=== PATIENT | male | born 1990 | race Caucasian/White ===

== ENCOUNTER 2019-02-21 13:09 | Emergency (ER) | payer BC ==
--- NOTE | 2019-02-21 13:40 | PDOC ---
Rapid Medical Evaluation Chief Complaint: Pain, Acute Time Seen by Provider: 02/21/19 13:36 Medical Evaluation: 02/21/19 13:38 Pt c/o: rt lower abd pain x 4 days worse at night, no other assoc complaints Pt on brief exam: no rlq tenderness, no cva tenderness, vss Pt ordered for: labs and urine Pt to proceed to the ED Discharge Disposition - Diagnosis Abdominal pain - Discharge Dispostion Disposition: HOME - Referrals Referrals: [facility] [place] [facility] [place] [Provider Group] Carlos A Medina MD [Staff Physician] - Guy Galindo MD [Staff Physician] - Urszula Ma MD [Staff Physician] - Rene Mahmood MD [Staff Physician] - Kory Pierce MD [Staff Physician] - - Patient Instructions Printed Discharge Instructions: DI for Abdominal Pain-Adult Additional Instructions: You were seen in the emergency department for the evaluation of your abdominal pain. Your laboratory work was normal, showing no signs of infection. Your urine does not have blood which would be consistent with kidney stones. In addition, there was no infection in your urine. Please follow up with one of the primary medical doctors provided as referrals to you. It is important that you follow up with them within the next 1 week after discharge for establishment of care. Please return to the emergency department if you have worsening pain or new concerning symptoms such as fevers, pain with urination, worsening abdominal pain, and uncontrollable nausea and vomiting. Thank you. - Post Discharge Activity Work/School Note: Back to Work
[2019-02-21 14:20] LABS: BASO % 0.6 % (0-2.0); EOS % 1.5 % (0-4.5); HEMATOCRIT 46.1 % (35.4-49); HEMOGLOBIN 16.4 GM/dL (11.7-16.9); MCH 31.3 pg (25.7-33.7); MCHC 35.5 g/dl (32.0-35.9); MEAN CELL VOLUME 88.1 fl (80-96); MEAN PLT VOLUME 7.9 fl (7.5-11.1); MONO % 5.7 % (3.8-10.2); NEUT % 72.2 % (42.8-82.8); PLATELET COUNT 270 K/MM3 (134-434); RBC 5.24 M/mm3 (4.00-5.60); WHITE BLOOD COUNT 9.1 K/mm3 (4.0-10.0)
[2019-02-21 14:21] LABS: URINE APPEARANCE CLEAR; URINE BILIRUBIN NEGATIVE (NEGATIVE); URINE COLOR YELLOW; URINE GLUCOSE (UA) NEGATIVE (NEGATIVE); URINE KETONE NEGATIVE (NEGATIVE); URINE LEUK ESTERASE NEGATIVE (NEGATIVE); URINE NITRITE NEGATIVE (NEGATIVE); URINE PROTEIN NEGATIVE (NEGATIVE); URINE UROBILINOGEN 0.2 mg/dL (0.2-1.0)
[2019-02-21] MEDS ORDERED: ACETAMINOPHEN 325 MG TABLET (FP) PO ONE (14:32)
[2019-02-21 14:38] LABS: ALBUMIN 4.4 g/dl (3.4-5.0); BILIRUBIN,TOTAL 0.5 mg/dL (0.2-1); BLOOD UREA NITROGEN 17.9 mg/dL (7-18); CALCIUM 9.4 mg/dL (8.5-10.1); CREATININE 1.2 mg/dL (0.55-1.3); POTASSIUM 4.3 mmol/L (3.5-5.1); TOT PROT 7.8 g/dl (6.4-8.2)
--- NOTE | 2019-02-21 14:52 | PDOC ---
History of Present Illness - General Chief Complaint: Pain, Acute Stated Complaint: ABD PAIN Time Seen by Provider: 02/21/19 13:36 History Source: Patient Exam Limitations: No Limitations - History of Present Illness Initial Comments: 02/21/19 14:57 28 yo M with no past medical history presents to the emergency department with RLQ pain with onset this past Sunday (6 days). 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 The patient states the pain would be worse at night, come and go, and described as a discomfort. The patient denies fever, chills, dysuria, hematuria, increased urinary frequency, hx of STDs, hx of abdominal surgeries, hx of penile discharge, testicular pain/swelling, trauma, hematochezia, and constipation. Per the patient, he had diarrhea episodes from Sunday - Sunday with spontaneous resolution. The patient states his pain is nearly abated while in the emergency department without intervention given. Shx: None Allergies: NKDA Past History - Past Medical History Allergies/Adverse Reactions: Allergies Allergy/AdvReac Type Severity Reaction Status Date / Time No Known Allergies Allergy Verified 02/21/19 13:39 - Suicide/Smoking/Psychosocial Hx Smoking History: Never smoked Hx Alcohol Use: No Drug/Substance Use Hx: No Review of Systems - Review of Systems Able to Perform ROS?: Yes Is the patient limited Sami proficient: No Constitutional: No: Chills, Diaphoresis, Fever, Weakness HEENTM: No: Ear Pain, Nose Pain, Throat Pain, Mouth Pain Respiratory: No: Cough, Shortness of Breath, Hemoptysis Cardiac (ROS): No: Chest Pain, Lightheadedness, Palpitations, Syncope, Chest Tightness ABD/GI: No: Constipated, Diarrhea, Nausea, Rectal Bleeding, Vomiting, Tarry Stools : No: Burning, Dysuria, Discharge, Frequency, Flank Pain, Hematuria, Incontinence, Urgency, Testicular Mass, Testicular Swelling, Testicular Pain Musculoskeletal: No: Back Pain, Joint Pain, Neck Pain Integumentary: No: Bruising, Erythema, Rash Neurological: No: Headache, Numbness, Tingling, Tremors Psychiatric: No: Change in Appetite Endocrine: No: Unexplained Weight Gain Hematologic/Lymphatic: No: Anemia *Physical Exam - Vital Signs Last Vital Signs Temp Pulse Resp BP Pulse Ox 98.4 F 83 16 108/72 99 02/21/19 13:36 02/21/19 13:36 02/21/19 13:36 02/21/19 13:36 02/21/19 13:36 - Physical Exam General Appearance: Yes: Nourished, Appropriately Dressed. No: Apparent Distress, Intoxicated HEENT: positive: EOMI, YURY, Normal Voice, Symmetrical, Pharynx Normal, Hearing Grossly Normal. negative: Pale Conjunctivae, Scleral Icterus (R), Scleral Icterus (L), Muffled/Hoarse voice, Pharyngeal Erythema, Tonsillar Exudate, Tonsillar Erythema, Nasal Congestion, Rhinorrhea, Sinus Tenderness, Excessive drooling Neck: positive: Trachea midline, Supple. negative: Tender, Lymphadenopathy (R) , Lymphadenopathy (L), Tender lateral, Tender midline Respiratory/Chest: positive: Lungs Clear, Normal Breath Sounds. negative: Chest Tender, Respiratory Distress, Accessory Muscle Use, Crackles, Rales, Rhonchi, Stridor, Wheezing Cardiovascular: positive: Regular Rhythm, Regular Rate, S1, S2. negative: Systolic Murmur Gastrointestinal/Abdominal: positive: Normal Bowel Sounds, Flat, Soft. negative : Tender, Distended, Guarding, Rebound Male Genitalia: positive: normal genitalia. negative: testicular tenderness, testicular mass, epididymus tender, inguinal hernia Lymphatic: negative: Adenopathy Musculoskeletal: positive: Normal Inspection. negative: CVA Tenderness, Vertebral Tenderness Extremity: positive: Normal Capillary Refill, Normal Inspection, Normal Range of Motion. negative: Tender Integumentary: positive: Normal Color, Dry, Warm Neurologic: positive: customer relations advisor II-XII NML intact, Fully Oriented, Alert, Normal Mood/ Affect, Normal Response, Motor Strength 5/5 ED Treatment Course - LABORATORY CBC & Chemistry Diagram: 02/21/19 13:50 02/21/19 13:50 - ADDITIONAL ORDERS Additional order review: Laboratory Results 02/21/19 02/21/19 02/21/19 13:50 13:50 13:50 Sodium 136 Potassium 4.3 Chloride 102 Carbon Dioxide 28 Anion Gap 6 L BUN 17.9 Creatinine 1.2 Est GFR (CKD-EPI)AfAm 93.48 Est GFR (CKD-EPI)NonAf 80.66 Random Glucose 107 H Calcium 9.4 Total Bilirubin 0.5 AST 19 ALT 29 Alkaline Phosphatase 71 Total Protein 7.8 Albumin 4.4 Lipase 86 Urine Color Yellow Urine Appearance Clear Urine pH 7.0 Ur Specific [place] 1.010 Urine Protein Negative Urine Glucose (UA) Negative Urine Ketones Negative Urine Blood Negative Urine Nitrite Negative Urine Bilirubin Negative Urine Urobilinogen 0.2 Ur Leukocyte Esterase Negative 02/21/19 13:50 RBC 5.24 MCV 88.1 MCHC 35.5 RDW 12.0 MPV 7.9 Neutrophils % 72.2 Lymphocytes % 20.0 Monocytes % 5.7 Eosinophils % 1.5 Basophils % 0.6 Medical Decision Making - Medical Decision Making 02/21/19 16:07 28 yo M with no past medical history presents to the emergency department with RLQ pain with onset this past Sunday (6 days). 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 Initial vitals: Initial Vital Signs Temp Pulse Resp BP Pulse Ox 98.4 F 83 16 108/72 99 02/21/19 13:36 02/21/19 13:36 02/21/19 13:36 02/21/19 13:36 02/21/19 13:36 Work up: ddx: appendicitis vs nephrolithiasis vs UTI vs inguinal hernia. physical exam shows no testicular tenderness or swelling. no inguinal hernia appreciated. no tenderness to palpation in the RLQ. Suspicion for appendicitis low. Will check cbc, cmp, and UA for infection. Laboratory Tests 02/21/19 02/21/19 02/21/19 13:50 13:50 13:50 WBC 9.1 RBC 5.24 Hgb 16.4 Hct 46.1 MCV 88.1 MCH 31.3 MCHC 35.5 RDW 12.0 Plt Count 270 MPV 7.9 Absolute Neuts (auto) 6.5 Neutrophils % 72.2 Lymphocytes % 20.0 Monocytes % 5.7 Eosinophils % 1.5 Basophils % 0.6 Nucleated RBC % 0 Sodium 136 Potassium 4.3 Chloride 102 Carbon Dioxide 28 Anion Gap 6 L BUN 17.9 Creatinine 1.2 Est GFR (CKD-EPI)AfAm 93.48 Est GFR (CKD-EPI)NonAf 80.66 Random Glucose 107 H Calcium 9.4 Total Bilirubin 0.5 AST 19 ALT 29 Alkaline Phosphatase 71 Total Protein 7.8 Albumin 4.4 Lipase 86 Urine Color Urine Appearance Urine pH Ur Specific [place] Urine Protein Urine Glucose (UA) Urine Ketones Urine Blood Urine Nitrite Urine Bilirubin Urine Urobilinogen Ur Leukocyte Esterase 02/21/19 13:50 WBC RBC Hgb Hct MCV MCH MCHC RDW Plt Count MPV Absolute Neuts (auto) Neutrophils % Lymphocytes % Monocytes % Eosinophils % Basophils % Nucleated RBC % Sodium Potassium Chloride Carbon Dioxide Anion Gap BUN Creatinine Est GFR (CKD-EPI)AfAm Est GFR (CKD-EPI)NonAf Random Glucose Calcium Total Bilirubin AST ALT Alkaline Phosphatase Total Protein Albumin Lipase Urine Color Yellow Urine Appearance Clear Urine pH 7.0 Ur Specific [place] 1.010 Urine Protein Negative Urine Glucose (UA) Negative Urine Ketones Negative Urine Blood Negative Urine Nitrite Negative Urine Bilirubin Negative Urine Urobilinogen 0.2 Ur Leukocyte Esterase Negative labs and ua negative for acute process patient on re-evaluation continues to not have abdominal pain. Will discharge the patient and have them follow up with PMD outpatient. patient understands the importance of this and will follow up within 1 week patient was stable at discharge and able to ambulate on their own volition. Dispo: Discharge 02/21/19 16:09 *DC/Admit/Observation/Transfer Diagnosis at time of Disposition: Abdominal pain - Discharge Dispostion Disposition: HOME Decision to Admit order: No - Referrals Referrals: [facility] [place] [facility] [place] [Provider Group] Urszula Ma MD [Staff Physician] - Kory Pierce MD [Staff Physician] - Rene Mahmood MD [Staff Physician] - Guy Galindo MD [Staff Physician] - Carlos A Medina MD [Staff Physician] - - Patient Instructions Printed Discharge Instructions: DI for Abdominal Pain-Adult Additional Instructions: You were seen in the emergency department for the evaluation of your abdominal pain. Your laboratory work was normal, showing no signs of infection. Your urine does not have blood which would be consistent with kidney stones. In addition, there was no infection in your urine. Please follow up with one of the primary medical doctors provided as referrals to you. It is important that you follow up with them within the next 1 week after discharge for establishment of care. Please return to the emergency department if you have worsening pain or new concerning symptoms such as fevers, pain with urination, worsening abdominal pain, and uncontrollable nausea and vomiting. Thank you. - Post Discharge Activity Forms/Work/School Notes: Back to Work
--- NOTE | 2019-02-21 14:57 | PDOC ---
Documentation entered by Daphnie Humphries SCRIBE, acting as scribe for Damian Carrasco MD. Damian Carrasco MD: This documentation has been prepared by the pilaribeYandel Natalie, SCRIBE, under my direction and personally reviewed by me in its entirety. I confirm that the documentation accurately reflects all work, treatment, procedures, and medical decision making performed by me. Attending Attestation - Resident Resident Name: Anthony Brown - ED Attending Attestation I have performed the following: I have examined & evaluated the patient, The case was reviewed & discussed with the resident, I agree w/resident's findings & plan, Exceptions are as noted - HPI HPI: 02/21/19 14:57 28 years old with no significant past medical history presents to the emergency department with one-week history of intermittent right lower quadrant discomfort comes and goes currently asymptomatic no fever no chills no nausea no vomiting no abdominal pain at this time ROS: A complete review of 10 out of 10 review of systems is taken and is negative apart from what is previously mentioned below and in the HPI. - Physicial Exam PE: 02/21/19 14:57 Vitals: Triage Vital signs reviewed General Appearance: no acute distress, well nourished well developed, Head: Atraumatic, Cardiac: Regular rate and rhythym, no murmurs, no rubs, no gallops, Lungs: Clear to auscultation bilateral, good air movement bilaterally, Abdomen: Soft, non distended, normal bowel sounds, non tender to palpation Extremities: Full range of motion to all extremities, no cyanosis, clubbing, or edema Skin: Warm and dry, no rashes or lesions, no rash, no petechiae Psych: normal mood, normal affect - Medical Decision Making 02/21/19 15:01 \ Well-appearing no apparent distress presents emergency department with now resolved abdominal discomfort it is been intermittent for the last few days with no associated fever chills nausea vomiting. Patient's laboratory analysis and urinalysis is completely unremarkable. 3 abdominal exams and and performed in the emergency department with no pain. Patient understands he will return to the emergency department for any returning persistent pain any pain associated with fever as early appendicitis is still in the differential Findings, need for follow-up and strict return instructions discussed with patient.
[2019-02-21] MEDS ORDERED: ACETAMINOPHEN 325 MG TABLET (FP) ONE (15:33)
[2019-02-21 15:43] VITALS: BP 115/71; PULSE 62; TEMP 98
== END 2019-02-21 15:43 | disposition home or self-care (01) ==
LOC: JER 13:09
DX: R10.9 Unspecified abdominal pain (principal)
CPT/HCPCS: 36415; 80053; 81003; 83690; 85025; 87086; 99281-25

== ENCOUNTER 2021-06-09 22:35 | Inpatient (IN) | payer BC ==
[2021-06-09] MEDS ORDERED: SODIUM CHLORIDE 1,000 ML IV STA (22:53)
[2021-06-09 23:37] LABS: HEMATOCRIT 41.4 % (35.4-49); HEMOGLOBIN 14.3 GM/dL (11.7-16.9); MCH 30.2 pg (25.7-33.7); MCHC 34.5 g/dl (32.0-35.9); MEAN CELL VOLUME 87.6 fl (80-96); MEAN PLT VOLUME 7.9 fl (7.5-11.1); PLATELET COUNT 164 10^3/uL (134-434); RBC 4.72 M/mm3 (4.00-5.60); RDW 12.2 % (11.9-15.9); WHITE BLOOD COUNT 3.9 K/mm3 (4.0-10.0)
[2021-06-09] MEDS ORDERED: DEXAMETHASONE SOD PHOSPHATE 10 MG/1 ML VIAL IVPUSH ONE (23:39)
[2021-06-09] MEDS ORDERED: ACETAMINOPHEN 1000 MG/100 ML BAG IVPB ONE (23:45)
[2021-06-09 23:57] LABS: CHLORIDE 108 mmol/L (98-107); SODIUM 139 mmol/L (136-145)
[2021-06-10 00:01] LABS: ALBUMIN 3.5 g/dl (3.4-5.0); ANION GAP 8 MMOL/L (8-16); BLOOD UREA NITROGEN 11.6 mg/dL (7-18); CO2 22 mmol/L (21-32); GLUCOSE,RANDOM 102 mg/dL (74-106)
[2021-06-10 00:03] LABS: CREATININE 1.3 mg/dL (0.55-1.3); SGOT/AST 29 U/L (15-37); SGPT/ALT 25 U/L (13-61)
[2021-06-10 00:05] LABS: BILIRUBIN,TOTAL 0.4 mg/dL (0.2-1); TOT PROT 7.2 g/dl (6.4-8.2)
[2021-06-10 00:06] LABS: ALK PHOS 45 U/L (45-117)
[2021-06-10] MEDS ORDERED: ACETAMINOPHEN INJECTION 100 ML IVPB ONE (00:08)
[2021-06-10] MEDS ORDERED: DEXAMETHASONE SOD PHOSPHATE 10 MG/1 ML VIAL ONE (00:08)
[2021-06-10] MEDS ORDERED: VANCOMYCIN HCL 1,500 MG in DEXTROSE 5%-WATER - 500 ML IVPB ONE (03:33)
[2021-06-10] MEDS ORDERED: PIPERACILLIN/TAZOB 4.5 GM 4.5 GM in DEXTROSE 5%-WATER 100 ML IVPB ONE (03:33)
[2021-06-10] MEDS ORDERED: PIPERACILLIN/TAZOB 4.5 GM 4.5 GM/100 ML BAG IVPB ONE (04:34)
[2021-06-10] MEDS ORDERED: VANCOMYCIN PREMIX 1.5 GM 1,500 MG/300 ML BAG IVPB ONE (06:00)
[2021-06-10] MEDS ORDERED: DEXAMETHASONE SOD PHOSPHATE 4 MG/1 ML VIAL ONE (08:47)
[2021-06-10] MEDS ORDERED: ENOXAPARIN NA (PORCINE) 40 MG/0.4 ML DISP.SYRIN SQ ONE (08:49)
[2021-06-10] MEDS ORDERED: CHOLECALCIFEROL (VIT D3) 1,000 UNIT (25 MCG) TABLET ONE (08:49)
[2021-06-10] MEDS ORDERED: ASCORBIC ACID 500 MG TABLET (FP) ONE (08:49)
[2021-06-10] MEDS ORDERED: ZINC SULFATE 220 MG CAPSULE (FP) ONE (08:49)
[2021-06-10] MEDS: ENOXAPARIN NA (PORCINE) 40 MG/0.4 ML DISP.SYRIN SQ SCH (09:02)
[2021-06-10] MEDS: ASCORBIC ACID 250 MG TABLET (FP) PO SCH (09:02)
[2021-06-10] MEDS: DEXAMETHASONE SOD PHOSPHATE 10 MG/1 ML VIAL IVPUSH SCH (09:02)
[2021-06-10] MEDS: CHOLECALCIFEROL (VIT D3) 1,000 UNIT (25 MCG) TABLET PO SCH (09:02)
[2021-06-10] MEDS: ZINC SULFATE 220 MG CAPSULE (FP) PO SCH (09:02)
[2021-06-10 09:41] LABS: BASO % 0.1 % (0-2.0); HEMATOCRIT 39.7 % (35.4-49); LYMPH % 31.3 % (8-40); MCH 31.2 pg (25.7-33.7); MCHC 35.2 g/dl (32.0-35.9); MEAN CELL VOLUME 88.5 fl (80-96); MEAN PLT VOLUME 7.7 fl (7.5-11.1); MONO % 7.5 % (3.8-10.2); NEUT % 61.1 % (42.8-82.8); PLATELET COUNT 151 10^3/uL (134-434); RBC 4.49 M/mm3 (4.00-5.60); RDW 12.3 % (11.9-15.9)
[2021-06-10 10:02] LABS: ALBUMIN 3.4 g/dl (3.4-5.0); BLOOD UREA NITROGEN 11.2 mg/dL (7-18); CALCIUM 8.1 mg/dL (8.5-10.1); MAGNESIUM 2.5 mg/dL (1.8-2.4)
[2021-06-10 10:04] LABS: BILIRUBIN,TOTAL 0.4 mg/dL (0.2-1); CREATININE 1.2 mg/dL (0.55-1.3)
[2021-06-10] MEDS ORDERED: guaiFENesin/CODEINE 5 ML UNIT-DOSE CUPS PO PRN (10:46)
[2021-06-10] MEDS ORDERED: ALBUTEROL SO4 HFA INHALER IH PRN (10:48)
[2021-06-10] MEDS: BUDESONIDE/FORMETEROL FUMARATE 80/4.5 mcg INHALER IH SCH ×2 (12:00→22:14)
[2021-06-10] MEDS ORDERED: FAMOTIDINE 20 MG TABLET ONE (12:08)
[2021-06-10] MEDS: FAMOTIDINE 20 MG TABLET PO SCH (12:11)
[2021-06-10] MEDS ORDERED: REMDESIVIR 200 MG in SODIUM CHLORIDE 250 ML IVPB ONE (14:00)
[2021-06-10] MEDS ORDERED: MELATONIN 5 MG TABLETS PO PRN (16:16)
[2021-06-10] MEDS ORDERED: ACETAMINOPHEN 325 MG TABLET (FP) ONE (18:45)
[2021-06-10] MEDS: ACETAMINOPHEN 325 MG TABLET (FP) PO PRN (18:47)
[2021-06-11 01:00] VITALS: BMI 331.3
[2021-06-11 06:55] LABS: HEMATOCRIT 40.2 % (35.4-49); HEMOGLOBIN 13.4 GM/dL (11.7-16.9); MCH 29.7 pg (25.7-33.7); MCHC 33.4 g/dl (32.0-35.9); MEAN CELL VOLUME 88.7 fl (80-96); MEAN PLT VOLUME 7.7 fl (7.5-11.1); PLATELET COUNT 207 10^3/uL (134-434); RBC 4.53 M/mm3 (4.00-5.60); WHITE BLOOD COUNT 5.2 K/mm3 (4.0-10.0)
[2021-06-11 07:11] LABS: ALBUMIN 3.2 g/dl (3.4-5.0)
[2021-06-11 07:12] LABS: BLOOD UREA NITROGEN 12.8 mg/dL (7-18)
[2021-06-11 07:15] LABS: CREATININE 1.1 mg/dL (0.55-1.3)
[2021-06-11 07:16] LABS: BILIRUBIN,TOTAL 0.4 mg/dL (0.2-1); TOT PROT 6.6 g/dl (6.4-8.2)
[2021-06-11 08:13] LABS: ERYTHROCYTE SEDIMENTATION RATE 18 mm/hr (0-10)
[2021-06-11] MEDS ORDERED: PT OWN MED DRAWER 7, Y5N ONE ×2 (10:06→14:21)
[2021-06-11] MEDS: FAMOTIDINE 20 MG TABLET PO SCH (10:15)
[2021-06-11] MEDS: ZINC SULFATE 220 MG CAPSULE (FP) PO SCH (10:15)
[2021-06-11] MEDS: CHOLECALCIFEROL (VIT D3) 1,000 UNIT (25 MCG) TABLET PO SCH (10:15)
[2021-06-11] MEDS: ENOXAPARIN NA (PORCINE) 40 MG/0.4 ML DISP.SYRIN SQ SCH (10:15)
[2021-06-11] MEDS: DEXAMETHASONE SOD PHOSPHATE 10 MG/1 ML VIAL IVPUSH SCH (10:22)
[2021-06-11] MEDS: BUDESONIDE/FORMETEROL FUMARATE 80/4.5 mcg INHALER IH SCH ×2 (10:22→21:36)
[2021-06-11] MEDS: ASCORBIC ACID 250 MG TABLET (FP) PO SCH (12:49)
[2021-06-11] MEDS: REMDESIVIR 100 MG in SODIUM CHLORIDE 250 ML IVPB SCH (14:26)
[2021-06-11] MEDS: ACETAMINOPHEN 325 MG TABLET (FP) PO PRN (17:57)
[2021-06-12] MEDS: ACETAMINOPHEN 325 MG TABLET (FP) PO PRN (02:53)
[2021-06-12] MEDS ORDERED: PANTOPRAZOLE 40 MG TABLET PO ONE (04:05)
[2021-06-12] MEDS ORDERED: MAG HYDROX/AL HYDROX/SIMETH 30 ML UNIT-DOSE CUP PO ONE (06:32)
[2021-06-12] MEDS ORDERED: PT OWN MED DRAWER 7, Y5N ONE (09:59)
[2021-06-12] MEDS: FAMOTIDINE 20 MG TABLET PO SCH (10:07)
[2021-06-12] MEDS: DEXAMETHASONE SOD PHOSPHATE 10 MG/1 ML VIAL IVPUSH SCH (10:07)
[2021-06-12] MEDS: ENOXAPARIN NA (PORCINE) 40 MG/0.4 ML DISP.SYRIN SQ SCH (10:07)
[2021-06-12] MEDS: CHOLECALCIFEROL (VIT D3) 1,000 UNIT (25 MCG) TABLET PO SCH (10:08)
[2021-06-12] MEDS: BUDESONIDE/FORMETEROL FUMARATE 80/4.5 mcg INHALER IH SCH ×2 (10:08→22:00)
[2021-06-12] MEDS: ZINC SULFATE 220 MG CAPSULE (FP) PO SCH (10:08)
[2021-06-12] MEDS: ASCORBIC ACID 250 MG TABLET (FP) PO SCH (10:08)
[2021-06-12] MEDS: PANTOPRAZOLE 40 MG TABLET PO SCH (11:03)
[2021-06-12] MEDS: REMDESIVIR 100 MG in SODIUM CHLORIDE 250 ML IVPB SCH (13:35)
[2021-06-13] MEDS ORDERED: PT OWN MED DRAWER 7, Y5N ONE (09:04)
[2021-06-13] MEDS: ASCORBIC ACID 250 MG TABLET (FP) PO SCH (09:13)
[2021-06-13] MEDS: CHOLECALCIFEROL (VIT D3) 1,000 UNIT (25 MCG) TABLET PO SCH (09:13)
[2021-06-13] MEDS: ENOXAPARIN NA (PORCINE) 40 MG/0.4 ML DISP.SYRIN SQ SCH (09:13)
[2021-06-13] MEDS: BUDESONIDE/FORMETEROL FUMARATE 80/4.5 mcg INHALER IH SCH (09:13)
[2021-06-13] MEDS: PANTOPRAZOLE 40 MG TABLET PO SCH (09:13)
[2021-06-13] MEDS: ZINC SULFATE 220 MG CAPSULE (FP) PO SCH (09:13)
[2021-06-13] MEDS: DEXAMETHASONE SOD PHOSPHATE 10 MG/1 ML VIAL IVPUSH SCH (09:13)
[2021-06-13] MEDS: REMDESIVIR 100 MG in SODIUM CHLORIDE 250 ML IVPB SCH (14:10)
[2021-06-13] MEDS: BUDESONIDE/FORMETEROL FUMARATE 160/4.5 mcg INHALER IH SCH (22:05)
[2021-06-14 07:39] LABS: HEMATOCRIT 41.1 % (35.4-49); MCHC 34.1 g/dl (32.0-35.9); MEAN PLT VOLUME 7.7 fl (7.5-11.1); PLATELET COUNT 328 10^3/uL (134-434); RBC 4.67 M/mm3 (4.00-5.60); RDW 12.1 % (11.9-15.9); WHITE BLOOD COUNT 7.6 K/mm3 (4.0-10.0)
[2021-06-14 08:19] LABS: CALCIUM 7.9 mg/dL (8.5-10.1)
[2021-06-14 08:20] LABS: ALBUMIN 3.1 g/dl (3.4-5.0); BLOOD UREA NITROGEN 22.3 mg/dL (7-18); MAGNESIUM 2.2 mg/dL (1.8-2.4)
[2021-06-14 08:24] LABS: BILIRUBIN,TOTAL 0.4 mg/dL (0.2-1); TOT PROT 6.7 g/dl (6.4-8.2)
[2021-06-14] MEDS ORDERED: PT OWN MED DRAWER 7, Y5N ONE (08:55)
[2021-06-14 08:58] LABS: ERYTHROCYTE SEDIMENTATION RATE 27 mm/hr (0-10)
[2021-06-14] MEDS: ENOXAPARIN NA (PORCINE) 40 MG/0.4 ML DISP.SYRIN SQ SCH (09:14)
[2021-06-14] MEDS: DEXAMETHASONE SOD PHOSPHATE 10 MG/1 ML VIAL IVPUSH SCH (09:15)
[2021-06-14] MEDS: ASCORBIC ACID 250 MG TABLET (FP) PO SCH (09:15)
[2021-06-14] MEDS: PANTOPRAZOLE 40 MG TABLET PO SCH (09:15)
[2021-06-14] MEDS: ZINC SULFATE 220 MG CAPSULE (FP) PO SCH (09:15)
[2021-06-14] MEDS: CHOLECALCIFEROL (VIT D3) 1,000 UNIT (25 MCG) TABLET PO SCH (09:15)
[2021-06-14] MEDS: BUDESONIDE/FORMETEROL FUMARATE 160/4.5 mcg INHALER IH SCH ×2 (09:15→22:44)
[2021-06-14] MEDS: REMDESIVIR 100 MG in SODIUM CHLORIDE 250 ML IVPB SCH (14:38)
[2021-06-14] MEDS ORDERED: ALBUTEROL SO4 HFA INHALER IH PRN (23:32)
[2021-06-14] MEDS ORDERED: ACETAMINOPHEN 325 MG TABLET (FP) PO PRN (23:32)
[2021-06-14] MEDS ORDERED: MELATONIN 5 MG TABLETS PO PRN (23:32)
[2021-06-15] MEDS: BUDESONIDE/FORMETEROL FUMARATE 160/4.5 mcg INHALER IH SCH (09:46)
[2021-06-15 09:56] LABS: HEMATOCRIT 42.9 % (35.4-49); HEMOGLOBIN 14.8 GM/dL (11.7-16.9); MCH 30.4 pg (25.7-33.7); MCHC 34.5 g/dl (32.0-35.9); MEAN CELL VOLUME 88.1 fl (80-96); MEAN PLT VOLUME 7.2 fl (7.5-11.1); PLATELET COUNT 400 10^3/uL (134-434); RBC 4.87 M/mm3 (4.00-5.60); RDW 12.4 % (11.9-15.9); WHITE BLOOD COUNT 11.4 K/mm3 (4.0-10.0)
[2021-06-15] MEDS ORDERED: DEXAMETHASONE SOD PHOSPHATE 10 MG/1 ML VIAL IVPUSH SCH (10:00)
[2021-06-15] MEDS ORDERED: CHOLECALCIFEROL (VIT D3) 1,000 UNIT (25 MCG) TABLET PO SCH (10:00)
[2021-06-15] MEDS ORDERED: ZINC SULFATE 220 MG CAPSULE (FP) PO SCH (10:00)
[2021-06-15] MEDS ORDERED: ASCORBIC ACID 250 MG TABLET (FP) PO SCH (10:00)
[2021-06-15] MEDS ORDERED: ENOXAPARIN NA (PORCINE) 40 MG/0.4 ML DISP.SYRIN SQ SCH (10:00)
[2021-06-15] MEDS ORDERED: PANTOPRAZOLE 40 MG TABLET PO SCH (10:00)
[2021-06-15 10:22] LABS: CHLORIDE 107 mmol/L (98-107); SODIUM 139 mmol/L (136-145)
[2021-06-15 10:34] LABS: BLOOD UREA NITROGEN 18.4 mg/dL (7-18); CALCIUM 8.7 mg/dL (8.5-10.1)
[2021-06-15 10:35] LABS: ALBUMIN 3.3 g/dl (3.4-5.0); ANION GAP 11 MMOL/L (8-16); CO2 21 mmol/L (21-32); GLUCOSE,RANDOM 94 mg/dL (74-106)
[2021-06-15 10:37] LABS: CREATININE 0.9 mg/dL (0.55-1.3); SGOT/AST 18 U/L (15-37)
[2021-06-15 10:38] LABS: BILIRUBIN,TOTAL 0.6 mg/dL (0.2-1); LDH 207 U/L (87-246)
[2021-06-15 10:39] LABS: SGPT/ALT 51 U/L (13-61)
[2021-06-15 10:40] LABS: ALK PHOS 49 U/L (45-117)
[2021-06-15 10:48] LABS: ERYTHROCYTE SEDIMENTATION RATE 10 mm/hr (0-10)
[2021-06-15 14:57] VITALS: BP 144/72; PULSE 77; TEMP 97.4
== END 2021-06-15 17:40 | disposition home or self-care (01) | DRG 177 ==
LOC: JER 22:35 → INTOOBSV 06-10 01:00 → JERBED 06-10 01:00 → OBSVTOIN 06-10 01:00 → UNDOADMOB 06-10 01:00 → J2W 06-10 16:16 → OBSVTOIN 06-10 16:16 → J2W 06-10 23:15 → JERBED 06-10 23:15 → J8W 06-14 20:36
PROVIDERS: ADMIT Internal Medicine
PROC: XW033E5 Introduction of Remdesivir Anti-infective into Peripheral Vein, Percutaneous Approach, New Technology Group 5 (ICD-10-PCS; principal; 2021-06-10)
PROC: 3E0333Z Introduction of Anti-inflammatory into Peripheral Vein, Percutaneous Approach (ICD-10-PCS; 2021-06-10)
DX: U07.1 COVID-19 (principal); J12.82 Pneumonia due to coronavirus disease 2019; J96.01 Acute respiratory failure with hypoxia; K21.9 Gastro-esophageal reflux disease without esophagitis; E86.0 Dehydration; I95.9 Hypotension, unspecified; F17.210 Nicotine dependence, cigarettes, uncomplicated; E66.9 Obesity, unspecified; Z68.32 Body mass index [BMI] 32.0-32.9, adult; R19.7 Diarrhea, unspecified; R55 Syncope and collapse
CPT/HCPCS: 36415; 71046-TC-FY; 71275-TC; 80053; 80061; 82550; 82553; 82728; 83615; 83735; 84443; 84484; 85025; 85027; 85379; 85651; 86140; 87804; 87807; 93005; 93010; 94010; 94761; 99285-25; C9399; C9803-CS; J1100; U0003; U0005